=== PATIENT | female | born 1955 ===

== ENCOUNTER 2025-05-26 12:41 | Outpatient (RCR) | payer MEDICARE, OTHER, SELFPAY ==
[2025-05-26 13:20] VITALS: BP 142/60
[2025-05-26] MEDS: EVENITY 105 MG SC ×2 (13:42→13:43)
== END 2025-05-27 09:18 | disposition home or self-care (01) ==
LOC: OID 12:41
PROVIDERS: ATTENDING PHYSICIAN Nurse Practitioner Family; FAMILY PHYSICIAN Internal Medicine
DX: M81.0 Age-related osteoporosis without current pathological fracture (principal)
CPT/HCPCS: 96372; J3111

== ENCOUNTER 2025-06-23 10:21 | Outpatient (RCR) | payer MEDICARE, OTHER, SELFPAY ==
[2025-06-23 10:42] VITALS: BP 133/67
[2025-06-23] MEDS: EVENITY 105 MG SC ×2 (10:49)
== END 2025-06-24 11:49 | disposition home or self-care (01) ==
LOC: OID 10:21
PROVIDERS: ATTENDING PHYSICIAN Nurse Practitioner Family; FAMILY PHYSICIAN Internal Medicine
DX: M81.0 Age-related osteoporosis without current pathological fracture (principal)
CPT/HCPCS: 96372; J3111